=== PATIENT | male | born 1970 | race Caucasian/White ===

== ENCOUNTER 2016-07-11 12:02 | Emergency (ER) | payer OTHER ==
--- NOTE | 2016-07-11 14:01 | DIAGNOSTIC IMAGING REPORT ---
PROCEDURE: XR CHEST 2 VIEW INDICATION: SHORTNESS OF BREATH, initial encounter TECHNIQUE: PA and lateral view. COMPARISON: None. FINDINGS: Lungs are clear. Cardiovascular structures are normal. Bony thorax is unremarkable. IMPRESSION: 1. Negative chest.
--- NOTE | 2016-07-11 14:16 | ED ORDER SUMMARY ---
..... Patient: MERA RODRIGUEZ OrderSheet [facility] VisitID: [id number] [place] [address] 46y, M Registration Date/Time: 07/11/2016 ORDER SHEET Weight: 68.0 kg (estimated) Allergies: Penicillins, Codeine, morphine, Bee stings, Coconut GENERAL ORDERS: RT Evaluation (Pt may need a Albuterol Tx.) Stat (12:28 07/11/2016 Elberte R.N. per protocol) (Ack 12:31 Sidney) (12:44 EHassan R.N.) Chest 2V Urgent (12:42 07/11/2016 HBivens A.R.N.P.) (Ack 12:52 EHassan R.N.) (12:55 Deep) MEDICATION ORDERS: Solu-MEDROL IM 125 mg (NOW) (12:44 07/11/2016 HBivens A.R.N.P.) (13:02 EHassan R.N.) IV FLUIDS: ORDER SHEET NOTES: [Electronically signed by Farhana Gann R.N. (14:53 07/11/2016)] [Electronically signed by Sandrine McdonaldR.N.P. (16:16 07/11/2016)] [Electronically locked/signed by Farhana Gann R.N. (14:53 07/11/2016)]
--- NOTE | 2016-07-11 14:16 | ED NURSING NOTES ---
Clinical Report - Nurses [facility] [address] [place] [address] 07/11/2016 12:04 Patient: MERA RODRIGUEZ TRIAGE Triage time 12:Jul 11 2016. Chief Complaint: DIFFICULTY BREATHING. Alert. No acute distress. (anxious). --12:19 Erika Mullen R.N. 12:11 07/11/16. BP: 100/73. HR: 110. RR: 22. O2 saturation: 99%. Temp: 98.1 F. Pain level now 0/10. --12:19 Erika Mullen R.N. Acuity: LEVEL 3. --12:19 Erika Mullen R.N. Weight: 68 kg estimated. Height/Length: 68 inches Estimated. BMI: 22.8. --14:51 Farhana Gann R.N. Medications Albuterol Sulfate Inhalation. --12:14 Erika Mullen R.N. PredniSONE Oral 20 mg. --12:15 Erika Mullen R.N. Azithromycin Oral 250 mg (Aleyda). --12:16 Erika Mullen R.N. ProAir HFA Inhalation. --12:16 Erika Mullen R.N. Medication/allergy information source: the patient. --12:19 Erika Mullen R.N. Allergies Penicillins. --12:13 Erika Mullen R.N. Codeine. --12:13 Erika Mullen R.N. morphine. --12:13 Erika Mullen R.N. Bee stings. --12:13 Erika Mullen R.N. Coconut. --12:13 Erika Mullen R.N. History Arrived by private vehicle. Primary physician (Urgent Care). ( Ran out of Inhalers two weeks ago. Went to [facility] on 07/07 for same c/o. Was put on ABX and Prednisone and Inhaler. Pt didn't feill any RX because no money.). Treatment FOOD AND NUTRITION TEACHER: None. PAST MEDICAL HX: Has not received seasonal influenza immunization. SOCIAL HX: Smoker- current status unknown. No alcohol use or drug use. No infectious disease exposure. FALL RISK ASSESSMENT: Fall risk assessment completed. No fall risk identified. NUTRITIONAL RISK ASSESSMENT: The nutritional risk assessment revealed no deficiencies. FUNCTIONAL ASSESSMENT: Functional assessment: no impairments noted. LEARNING NEEDS ASSESSMENT: The learning needs assessment revealed no barriers. SKIN INTEGRITY ASSESSMENT: Skin integrity risk assessment completed. No skin integrity risk identified. --12:19 Erika Mullen R.N. PROBLEMS: Asthma. --12:16 Erika Mullen R.N. ADDITIONAL SURGERIES: Appendectomy. Carpal Tunnel Surgery. --12:19 Erika Mullen R.N. Interventions ID band on patient. To room. --12:19 Erika Mullen R.N. PHYSICAL ASSESSMENT Ambulatory to room. GENERAL / NEURO / PSYCH: Alert. Oriented X 4. Appears in no acute distress. HEENT: Mucous membranes are pink. RESPIRATORY: Mild respiratory distress. The patient can speak in full sentences. Nonproductive cough. Chest nontender. Decreased breath sounds in the bases bilaterally; decreased breath sounds in the right lung base posteriorly. Expiratory wheezes in the left upper lung posteriorly. No stridor, nasal flaring or crackles. CVS: Capillary refill less than 2 seconds. SKIN: Skin is warm and dry. Normal skin turgor. --12:49 Afua Ibarra R.N. NURSING PROGRESS NOTES ( Respiratory Therapy in Room for evaluation.). --12:33 Beth Voss 12:30 07/11/16. HR: 100. RR: 18. O2 saturation: 96% on room air. --12:52 Afua Ibarra R.N. The initial plan of care for this patient has been created This plan of care was discussed with the patient. Monitoring of patient in place. Patient gowned. Reassurance given. Reassessment after medication administered (post neb tx). He is calm. Overall patient status is improved- he states feels the same. RESPIRATORY: Respiratory distress present. Breath sounds abnormal. Decreased breath sounds in the right lung base posteriorly and upper lung posteriorly. Expiratory wheezes in the left upper lung posteriorly. No crackles. CVS: Denies chest pain. SKIN: Skin is warm and dry. Skin color within normal limits. Skin color normal. No diaphoresis noted. Two patient identifiers checked. Call light placed in reach. Side rails up x 1. Bed placed in lowest position. Brakes of bed on. Brakes of chair on. --12:52 Afua Ibarra R.N. 13:02 07/11/2016 Solu-Medrol (MethylPREDNISolone Sodium Succ) IM 125 mg given. Given in the right deltoid. Allergies verified and confirmed 5 rights. --13:02 Afua Ibarra R.N. 13:34 07/11/2016 Solu-Medrol IM Response: no adverse reaction. --13:34 Afua Ibarra R.N. Reassessment after medication administered. He is calm and resting quietly. Overall patient status is improved- he states feels better. --13:35 Afua Ibarra R.N. 13:00 07/11/16. HR: 89. O2 saturation: 100% on room air. --13:35 Afua Ibarra R.N. DISPOSITION / DISCHARGE Departure time: 14:45 Jul 11 2016. Condition at departure: improved and stable. No learning barriers present. Patient verbalized understanding. Written instructions provided in Mosotho. The patient was discharged by the nurse practitioner. He was discharged home. He left the Emergency Department ambulatory and via private vehicle. --14:51 Farhana Gann R.N. 14:50 07/11/16. BP: 104/79. HR: 88. RR: 16. O2 saturation: 99% on room air. Temp: 98.5 F (oral). Pain level now: 0/10. --14:51 Farhana Gann R.N. Locked/Released at 07/11/2016 14:53 by Farhana Gann R.N.
--- NOTE | 2016-07-11 14:16 | ED CLINICAL REPORT ---
Clinical Report - Physicians/Mid Levels [facility] [address] [place] [address] 07/11/2016 12:04 Patient: MERA RODRIGUEZ Time Seen: 12:36; initial patient contact, initial documentation, patient care assumed. Arrived- By private vehicle. Historian- patient. HISTORY OF PRESENT ILLNESS Chief Complaint: DYSPNEA, WHEEZING and HISTORY OF ASTHMA. This started about 1 weeks ago and is still present. The dyspnea is described as moderate. The patient has had a cough. No sputum production, orthopnea or chest pain. See nurses notes for current asthma threapy. Asthma triggers: unknown. Takes asthma medications (inhaled albuterol, albuterol by nebulizer) (ran out of asthma meds x2 wks ago, says he has the rx at [facility] but can't afford it, admitted to having medicare, but states he can't afford the copay til the Jul 31 till his next payout). Similar symptoms previously: Chronically, as bad. Recent medical care: The patient was seen recently in a clinic. ( went to clinic on 07/07, given rx for inhaler, abx, and prednisone, didn't get rx filled, dx with asthma and copd). REVIEW OF SYSTEMS No sore throat, nasal discharge, sinus drainage or fever. He has had chills. All systems otherwise negative, except as recorded above. PAST HISTORY See nurses notes. PROBLEMS: Asthma. --12:16 Erika Mullen R.N. ADDITIONAL SURGERIES: Appendectomy. Carpal Tunnel Surgery. --12:19 Erika Mullen R.N. SOCIAL HISTORY No alcohol use or drug use. No recent travel. Is a local resident. He is homeless. FAMILY HISTORY Negative. ADDITIONAL NOTES The nursing notes have been reviewed with agreement regarding the chief complaint, HPI, ROS, PMH and patient medications and allergies. PHYSICAL EXAM Vital Signs: 07/11/2016 12:11 BP: 100/73. HR: 110. RR: 22. O2 saturation: 99%. Temp: 98.1 F. Have been reviewed as abnormal and appear to be correct. Blood pressure normal. Tachycardic. Respiratory rate normal. Temperature normal. Oxygen saturation normal. Appearance: Alert. No acute distress. Eyes: Pupils equal, round and reactive to light. Eyes normal inspection. Neck: Normal inspection. Neck supple. CVS: Normal heart rate and rhythm. Heart sounds normal. Pulses normal. Respiratory: No respiratory distress. Breath sounds normal. Abdomen: Soft and nontender. No organomegaly. Back: Normal inspection. Skin: Skin warm and dry. Normal skin color. No rash. Normal skin turgor. Extremities: Extremities exhibit normal ROM. No lower extremity edema. Neuro: Oriented X 3. No motor deficit. No sensory deficit. LABS, X-RAYS, AND EKG Chest X-ray: Normal Chest X-Ray. Note - Tests: (xrays reviewed by dr bolton). PROGRESS AND PROCEDURES Course of Care: RT at bedside doing tx upon arrival 1405. B breath sounds CTA, resp even and unlabored, po100%ra. Patient counseled in person regarding the patient's stable condition, test results and diagnosis. 1405. Differential Diagnosis: Other possible considerations: noncompliance, asthma, uri, pneumonia, bronchitis, copd, emphysema. Above considerations are based on history, physical exam and X-Ray data. Differential diagnosis was discussed with patient. Disposition: Discharged home in good and improved condition (14:16). Condition: good and stable. CLINICAL IMPRESSION Mild persistent asthma with an acute exacerbation. No status asthmaticus, pneumonia, hypoxemia or acute respiratory failure. INSTRUCTIONS Avoid tobacco smoke. Do not smoke. (need to get prescriptions filled, especially the inhaler). Warnings: GENERAL WARNINGS: Return or contact your physician immediately if your condition worsens or changes unexpectedly, if not improving as expected, or if other problems arise. Specifically return if problem worsens. Follow-up: Follow up with your doctor in about three days even if well. Call for an appointment. Summary of care provided to patient. Understanding of the discharge instructions verbalized by patient. (Electronically signed by Sandrine Mcdonald A.R.N.P. 07/11/2016 16:16)
--- NOTE | 2016-07-11 14:16 | ED NURSING NOTES ---
Clinical Report - Nurses [facility] [address] [place] [address] 07/11/2016 12:04 Patient: MERA RODRIGUEZ TRIAGE Triage time 12:Jul 11 2016. Chief Complaint: DIFFICULTY BREATHING. Alert. No acute distress. (anxious). --12:19 Erika Mullen R.N. 12:11 07/11/16. BP: 100/73. HR: 110. RR: 22. O2 saturation: 99%. Temp: 98.1 F. Pain level now 0/10. --12:19 Erika Mullen R.N. Acuity: LEVEL 3. --12:19 Erika Mullen R.N. Weight: 68 kg estimated. Height/Length: 68 inches Estimated. BMI: 22.8. --14:51 Farhana Gann R.N. Medications Albuterol Sulfate Inhalation. --12:14 Erika Mullen R.N. PredniSONE Oral 20 mg. --12:15 Erika Mullen R.N. Azithromycin Oral 250 mg (Aleyda). --12:16 Erika Mullen R.N. ProAir HFA Inhalation. --12:16 Erika Mullen R.N. Medication/allergy information source: the patient. --12:19 Erika Mullen R.N. Allergies Penicillins. --12:13 Erika Mullen R.N. Codeine. --12:13 Erika Mullen R.N. morphine. --12:13 Erika Mullen R.N. Bee stings. --12:13 Erika Mullen R.N. Coconut. --12:13 Erika Mullen R.N. History Arrived by private vehicle. Primary physician (Urgent Care). ( Ran out of Inhalers two weeks ago. Went to [facility] on 07/07 for same c/o. Was put on ABX and Prednisone and Inhaler. Pt didn't feill any RX because no money.). Treatment PACKAGER AND STRAPPER: None. PAST MEDICAL HX: Has not received seasonal influenza immunization. SOCIAL HX: Smoker- current status unknown. No alcohol use or drug use. No infectious disease exposure. FALL RISK ASSESSMENT: Fall risk assessment completed. No fall risk identified. NUTRITIONAL RISK ASSESSMENT: The nutritional risk assessment revealed no deficiencies. FUNCTIONAL ASSESSMENT: Functional assessment: no impairments noted. LEARNING NEEDS ASSESSMENT: The learning needs assessment revealed no barriers. SKIN INTEGRITY ASSESSMENT: Skin integrity risk assessment completed. No skin integrity risk identified. --12:19 Erika Mullen R.N. PROBLEMS: Asthma. --12:16 Erika Mullen R.N. ADDITIONAL SURGERIES: Appendectomy. Carpal Tunnel Surgery. --12:19 Erika Mullen R.N. Interventions ID band on patient. To room. --12:19 Erika Mullen R.N. PHYSICAL ASSESSMENT Ambulatory to room. GENERAL / NEURO / PSYCH: Alert. Oriented X 4. Appears in no acute distress. HEENT: Mucous membranes are pink. RESPIRATORY: Mild respiratory distress. The patient can speak in full sentences. Nonproductive cough. Chest nontender. Decreased breath sounds in the bases bilaterally; decreased breath sounds in the right lung base posteriorly. Expiratory wheezes in the left upper lung posteriorly. No stridor, nasal flaring or crackles. CVS: Capillary refill less than 2 seconds. SKIN: Skin is warm and dry. Normal skin turgor. --12:49 Afua Ibarra R.N. NURSING PROGRESS NOTES ( Respiratory Therapy in Room for evaluation.). --12:33 Beth Voss 12:30 07/11/16. HR: 100. RR: 18. O2 saturation: 96% on room air. --12:52 Afua Ibarra R.N. The initial plan of care for this patient has been created This plan of care was discussed with the patient. Monitoring of patient in place. Patient gowned. Reassurance given. Reassessment after medication administered (post neb tx). He is calm. Overall patient status is improved- he states feels the same. RESPIRATORY: Respiratory distress present. Breath sounds abnormal. Decreased breath sounds in the right lung base posteriorly and upper lung posteriorly. Expiratory wheezes in the left upper lung posteriorly. No crackles. CVS: Denies chest pain. SKIN: Skin is warm and dry. Skin color within normal limits. Skin color normal. No diaphoresis noted. Two patient identifiers checked. Call light placed in reach. Side rails up x 1. Bed placed in lowest position. Brakes of bed on. Brakes of chair on. --12:52 Afua Ibarra R.N. 13:02 07/11/2016 Solu-Medrol (MethylPREDNISolone Sodium Succ) IM 125 mg given. Given in the right deltoid. Allergies verified and confirmed 5 rights. --13:02 Afua Ibarra R.N. 13:34 07/11/2016 Solu-Medrol IM Response: no adverse reaction. --13:34 Afua Ibarra R.N. Reassessment after medication administered. He is calm and resting quietly. Overall patient status is improved- he states feels better. --13:35 Afua Ibarra R.N. 13:00 07/11/16. HR: 89. O2 saturation: 100% on room air. --13:35 Afua Ibarra R.N. DISPOSITION / DISCHARGE Departure time: 14:45 Jul 11 2016. Condition at departure: improved and stable. No learning barriers present. Patient verbalized understanding. Written instructions provided in Slovak. The patient was discharged by the nurse practitioner. He was discharged home. He left the Emergency Department ambulatory and via private vehicle. --14:51 Farhana Gann R.N. 14:50 07/11/16. BP: 104/79. HR: 88. RR: 16. O2 saturation: 99% on room air. Temp: 98.5 F (oral). Pain level now: 0/10. --14:51 Farhana Gann R.N. Locked/Released at 07/11/2016 14:53 by Farhana Gann R.N.
--- NOTE | 2016-07-11 14:16 | ED ORDER SUMMARY ---
..... Patient: MERA RODRIGUEZ OrderSheet [facility] VisitID: [id number] [place] [address] 46y, M Registration Date/Time: 07/11/2016 ORDER SHEET Weight: 68.0 kg (estimated) Allergies: Penicillins, Codeine, morphine, Bee stings, Coconut GENERAL ORDERS: RT Evaluation (Pt may need a Albuterol Tx.) Stat (12:28 07/11/2016 Elberte R.N. per protocol) (Ack 12:31 Sidney) (12:44 EHassan R.N.) Chest 2V Urgent (12:42 07/11/2016 HBivens A.R.N.P.) (Ack 12:52 EHassan R.N.) (12:55 Deep) MEDICATION ORDERS: Solu-MEDROL IM 125 mg (NOW) (12:44 07/11/2016 HBivens A.R.N.P.) (13:02 EHassan R.N.) IV FLUIDS: ORDER SHEET NOTES: [Electronically signed by Farhana Gann R.N. (14:53 07/11/2016)] [Electronically signed by Sandrine McdonaldR.N.P. (16:16 07/11/2016)] [Electronically locked/signed by Farhana Gann R.N. (14:53 07/11/2016)]
--- NOTE | 2016-07-11 14:16 | ED CLINICAL REPORT ---
Clinical Report - Physicians/Mid Levels [facility] [address] [place] [address] 07/11/2016 12:04 Patient: MERA RODRIGUEZ Time Seen: 12:36; initial patient contact, initial documentation, patient care assumed. Arrived- By private vehicle. Historian- patient. HISTORY OF PRESENT ILLNESS Chief Complaint: DYSPNEA, WHEEZING and HISTORY OF ASTHMA. This started about 1 weeks ago and is still present. The dyspnea is described as moderate. The patient has had a cough. No sputum production, orthopnea or chest pain. See nurses notes for current asthma threapy. Asthma triggers: unknown. Takes asthma medications (inhaled albuterol, albuterol by nebulizer) (ran out of asthma meds x2 wks ago, says he has the rx at [facility] but can't afford it, admitted to having medicare, but states he can't afford the copay til the Jul 31 till his next payout). Similar symptoms previously: Chronically, as bad. Recent medical care: The patient was seen recently in a clinic. ( went to clinic on 07/07, given rx for inhaler, abx, and prednisone, didn't get rx filled, dx with asthma and copd). REVIEW OF SYSTEMS No sore throat, nasal discharge, sinus drainage or fever. He has had chills. All systems otherwise negative, except as recorded above. PAST HISTORY See nurses notes. PROBLEMS: Asthma. --12:16 Erika Mullen R.N. ADDITIONAL SURGERIES: Appendectomy. Carpal Tunnel Surgery. --12:19 Erika Mullen R.N. SOCIAL HISTORY No alcohol use or drug use. No recent travel. Is a local resident. He is homeless. FAMILY HISTORY Negative. ADDITIONAL NOTES The nursing notes have been reviewed with agreement regarding the chief complaint, HPI, ROS, PMH and patient medications and allergies. PHYSICAL EXAM Vital Signs: 07/11/2016 12:11 BP: 100/73. HR: 110. RR: 22. O2 saturation: 99%. Temp: 98.1 F. Have been reviewed as abnormal and appear to be correct. Blood pressure normal. Tachycardic. Respiratory rate normal. Temperature normal. Oxygen saturation normal. Appearance: Alert. No acute distress. Eyes: Pupils equal, round and reactive to light. Eyes normal inspection. Neck: Normal inspection. Neck supple. CVS: Normal heart rate and rhythm. Heart sounds normal. Pulses normal. Respiratory: No respiratory distress. Breath sounds normal. Abdomen: Soft and nontender. No organomegaly. Back: Normal inspection. Skin: Skin warm and dry. Normal skin color. No rash. Normal skin turgor. Extremities: Extremities exhibit normal ROM. No lower extremity edema. Neuro: Oriented X 3. No motor deficit. No sensory deficit. LABS, X-RAYS, AND EKG Chest X-ray: Normal Chest X-Ray. Note - Tests: (xrays reviewed by dr bolton). PROGRESS AND PROCEDURES Course of Care: RT at bedside doing tx upon arrival 1405. B breath sounds CTA, resp even and unlabored, po100%ra. Patient counseled in person regarding the patient's stable condition, test results and diagnosis. 1405. Differential Diagnosis: Other possible considerations: noncompliance, asthma, uri, pneumonia, bronchitis, copd, emphysema. Above considerations are based on history, physical exam and X-Ray data. Differential diagnosis was discussed with patient. Disposition: Discharged home in good and improved condition (14:16). Condition: good and stable. CLINICAL IMPRESSION Mild persistent asthma with an acute exacerbation. No status asthmaticus, pneumonia, hypoxemia or acute respiratory failure. INSTRUCTIONS Avoid tobacco smoke. Do not smoke. (need to get prescriptions filled, especially the inhaler). Warnings: GENERAL WARNINGS: Return or contact your physician immediately if your condition worsens or changes unexpectedly, if not improving as expected, or if other problems arise. Specifically return if problem worsens. Follow-up: Follow up with your doctor in about three days even if well. Call for an appointment. Summary of care provided to patient. Understanding of the discharge instructions verbalized by patient. (Electronically signed by Sandrine Mcdonald A.R.N.P. 07/11/2016 16:16)
--- NOTE | 2016-07-11 16:16 | ED MAR SUMMARY ---
..... Medication Administration Record [facility] [address] [place] [address] Patient: MERA RODRIGUEZ Visit ID: [id number] 46y, M Weight: 68.0 kg Height/Length: 68 in BMI: 22.8 ALLERGIES: Coconut, Bee stings, morphine, Codeine, Penicillins Given 13:02 07/11/2016 Afua Ibarra, RReginaldNReginald Medication Administered: SOLU-MEDROL [IM] (METHYLPREDNISOLONE SODIUM SUCC), Dose: 125 mg IM. Medication Ordered: Solu-MEDROL IM 125 mg (NOW).
--- NOTE | 2016-07-11 16:16 | ED MAR SUMMARY ---
..... Medication Administration Record [facility] [address] [place] [address] Patient: MERA RODRIGUEZ Visit ID: [id number] 46y, M Weight: 68.0 kg Height/Length: 68 in BMI: 22.8 ALLERGIES: Coconut, Bee stings, morphine, Codeine, Penicillins Given 13:02 07/11/2016 Afua Ibarra, RReginaldNReginald Medication Administered: SOLU-MEDROL [IM] (METHYLPREDNISOLONE SODIUM SUCC), Dose: 125 mg IM. Medication Ordered: Solu-MEDROL IM 125 mg (NOW).
--- NOTE | 2016-07-11 16:16 | ED MED RECONCILIATION SUMMARY ---
Patient: MERA RODRIGUEZ Medication Reconciliation Report [facility] VisitID: [id number] [address] [place] [address] 46y, M Registration Date/Time: 07/11/2016 Weight: 68.0 kg Height/Length: 68 in. BMI: 22.8 ALLERGIES: Bee stings, Coconut, Codeine, morphine, Penicillins The patient's Home Medications are listed below: THE FOLLOWING MEDICATIONS NEED TO BE RECONCILED: Albuterol Sulfate Inhalation Azithromycin Oral 250 mg, [employer]Pack PredniSONE Oral 20 mg ProAir HFA Inhalation The source(s) of the original Home Medication information: patient The following Medications were given to the patient in the Emergency Department: Solu-Medrol [IM] IM 125 mg, administered: 07/11/2016 1:02:00 PM The following Medications were prescribed to the patient: None.
--- NOTE | 2016-07-11 16:16 | ED DISCHARGE INSTRUCTIONS ---
Patient: MERA RODRIGUEZ General Instructions [facility] VisitID: [id number] [place] [address] 46y, M Registration Date/Time: 07/11/2016 Mild persistent asthma with an acute exacerbation. No status asthmaticus, pneumonia, hypoxemia or acute respiratory failure. INSTRUCTIONS Avoid tobacco smoke. Do not smoke. (need to get prescriptions filled, especially the inhaler). Warnings: GENERAL WARNINGS: Return or contact your physician immediately if your condition worsens or changes unexpectedly, if not improving as expected, or if other problems arise. Specifically return if problem worsens. Follow-up: Follow up with your doctor in about three days even if well. Call for an appointment. Summary of care provided to patient. Understanding of the discharge instructions verbalized by patient. ADDITIONAL INFORMATION Asthma [Adult] Asthma is a disease where the small air passages within the lung go into spasm and restrict the flow of air. Inflammation and swelling of the airways cause further restriction. During an acute asthma attack, these factors cause difficulty breathing, wheezing, cough and chest tightness. An asthma attack can be triggered by many things. Common triggers include the common cold, bronchitis, pneumonia, irritants such as smoke or pullutants in the air, emotional upset and heavy exercise. Inmany adults with asthma, allergies todust, mold, pollen and animal dander can cause an asthma attack. Skipping doses of daily asthma medicine can also bring on an asthma attack. Asthma can be controlled with proper medicines and decreased exposure to known allergens. Home Care: Take prescribed medicine exactly at the times advised. If you have a hand-held inhaler or aerosol breathing medicine, do not use it more than once every four hours, unless told to do so. (If you need this medicine more than every four hours, you may need to return to the Emergency Room.) If prescribed an antibiotic or prednisone, take all of the medicine even if you are feeling better after a few days. Do not smoke. Avoid being exposed to the smoke of others. Some persons with asthma have worsening of their symptoms when they take aspirin and non-steroidal medicines like ibuprofen (Motrin, Advil) and naproxen (Aleve, Naprosyn). Talk to your doctor if you think this may apply to you. Acetaminophen (Tylenol)should be safe to use. Follow Up with your doctor, or as advised by our staff. Always bring all of your current medicines with you for your doctor to see. If you do not already have one, talk to your doctor about developing a personalized "Asthma Action Plan." [NOTE: A pneumococcal vaccine and yearly flu shot (every fall) are recommended. Ask your doctor about this.] Get Prompt Medical Attention if any of the following occur: Increased wheezing or shortness of breath Need to use your inhalers more often than usual without relief Fever of 100.4F (38C) or higher, or as directed by your healthcare provider Coughing up lots of dark-colored or bloody sputum (mucus) Chest pain with each breath You do not start to improve within 24 hours Call 911 If Any Of The Following Occur : Trouble walking or talking because of shortness of breath If you use a peak flow meter andyou are still in the red zone (less than 50 percent) 15 minutes after using inhaler medication Lips or fingernails turning martin or blue You have been given the following additional information: Asthma, Acute (Adult) (Electronically signed by Sandrine Mcdonald A.R.N.P. 07/11/2016 16:16)
--- NOTE | 2016-07-11 16:16 | ED MED RECONCILIATION SUMMARY ---
Patient: MERA RODRIGUEZ Medication Reconciliation Report [facility] VisitID: [id number] [address] [place] [address] 46y, M Registration Date/Time: 07/11/2016 Weight: 68.0 kg Height/Length: 68 in. BMI: 22.8 ALLERGIES: Bee stings, Coconut, Codeine, morphine, Penicillins The patient's Home Medications are listed below: THE FOLLOWING MEDICATIONS NEED TO BE RECONCILED: Albuterol Sulfate Inhalation Azithromycin Oral 250 mg, ZPack PredniSONE Oral 20 mg ProAir HFA Inhalation The source(s) of the original Home Medication information: patient The following Medications were given to the patient in the Emergency Department: Solu-Medrol [IM] IM 125 mg, administered: 07/11/2016 1:02:00 PM The following Medications were prescribed to the patient: None.
== END 2016-07-11 14:45 | disposition home or self-care (01) ==
LOC: ED SRH 12:02
DX: J45.31 Mild persistent asthma with (acute) exacerbation (principal); Z59.0 Homelessness; Z88.0 Allergy status to penicillin; Z88.5 Allergy status to narcotic agent

== ENCOUNTER 2016-09-13 04:21 | Inpatient (IN) | payer OTHER ==
[2016-09-13] VITALS (12 sets, daily range): BP systolic 102–132; BP diastolic 58–86
[~2016-09-13] VITALS: Ht 172.7 cm; Wt 55.1 kg
--- NOTE | 2016-09-13 05:32 | DIAGNOSTIC IMAGING REPORT ---
PROCEDURE: XR ABDOMEN 1 VIEW UPRIGHT INDICATION: ABDOMINAL PAIN TECHNIQUE: AP upright view. COMPARISON: None. FINDINGS: There are moderately dilated small bowel loops in the right abdomen with air-fluid levels. There is a moderate to large air fluid collection in the left central abdomen. There is no evidence of free air. Mild levoscoliosis may be positional. IMPRESSION: 1. Moderately dilated small bowel loops with air-fluid levels with a rmdxqbef-vv-fvlvr air fluid collection in the left central abdomen. Consider ileus or obstruction. 2. Findings discussed with Dr. Abdul.
--- NOTE | 2016-09-13 05:32 | DIAGNOSTIC IMAGING REPORT ---
PROCEDURE: XR ABDOMEN 1 VIEW UPRIGHT INDICATION: ABDOMINAL PAIN TECHNIQUE: AP upright view. COMPARISON: None. FINDINGS: There are moderately dilated small bowel loops in the right abdomen with air-fluid levels. There is a moderate to large air fluid collection in the left central abdomen. There is no evidence of free air. Mild levoscoliosis may be positional. IMPRESSION: 1. Moderately dilated small bowel loops with air-fluid levels with a xsabcizr-lq-aqtwl air fluid collection in the left central abdomen. Consider ileus or obstruction. 2. Findings discussed with Dr. Abdul.
--- NOTE | 2016-09-13 06:49 | DIAGNOSTIC IMAGING REPORT ---
PROCEDURE: CT ABD/PELVIS WITH CONTRAST INDICATION: Pain. Nausea. Diarrhea. History of appendectomy. TECHNIQUE: 125 ml of Isovue 300 were injected intravenously and axial images were obtained of the entire abdomen and pelvis with sagittal and coronal reformations. COMPARISON: None. FINDINGS: ABDOMEN: There is marked gaseous and fluid distention of the stomach, with moderate fluid distention throughout the small bowel. There is moderate mucosal thickening of the distal esophagus Right colon is a decompressed, although there is a large amount of fluid in the sigmoid colon rectum. Gallbladder liver, spleen, pancreas, kidneys, and aorta are normal. PELVIS: Pelvic structures are normal. No evidence of free fluid. IMPRESSION: 1. Marked fluid distention of the stomach with moderate to large amount of fluid throughout the small bowel. While there is moderate fluid in the sigmoid colon and rectum, findings are most compatible with small bowel obstruction (versus gastroenteritis. 2. Moderate mucosal thickening of the distal esophagus suggests reflux esophagitis. All CT scans at this facility use dose modulation, iterative reconstruction, and/or weight-based dosing when appropriate to reduce radiation dose to as low as reasonably achievable.
--- NOTE | 2016-09-13 06:57 | ED CLINICAL REPORT ---
Clinical Report - Physicians/Mid Levels [facility] [address] [place] [address] 09/13/2016 4:27 Patient: MERA RODRIGUEZ Time Seen: 04:55 Sep 13 2016. Arrived- By private vehicle. Historian- patient. CPT: ER phys charges level 5 (#[id number]). HISTORY OF PRESENT ILLNESS Chief Complaint: ABDOMINAL PAIN and VOMITING, DIARRHEA and NAUSEA. At its maximum, severity described as moderate. When seen in the E.D., severity described as moderate. Modifying factors- worsened by food. Not relieved by anything. This started about 5 days [employer] BUS [employer] and is still present. It is described as "pain" and cramping and it is described as located in the periumbilical area. The patient has had nausea, loss of appetite, moderate vomiting. The vomiting has occurred several times and mild diarrhea. No recent travel. Similar symptoms previously: None. Recent medical care: The patient was seen recently at this facility in the emergency department (2 days ago). Seen for similar symptoms. Evaluation/treatment: sonogram and labs. Diagnosis: (Abdominal pain unclear etiology). REVIEW OF SYSTEMS No constipation, black stools or stools, hematemesis or difficulty with urination. No pain with urination, urinary frequency, fever or sore throat or throat. No chest pain, difficulty breathing, cough or joint pain. No skin rash or rash, chills, back pain or chills. No fever, bloody stools, diabetic symptoms or easy bruising. The patient has had fatigue and weakness. All systems otherwise negative, except as recorded above. PAST HISTORY Abdominal Pain. COPD - Chronic Obstructive Pulmonary Disease. Asthma. Appendectomy. Carpal Tunnel Surgery. SOCIAL HISTORY Heavy tobacco smoker (cigarette)- 1 pack per day. ADDITIONAL NOTES The nursing notes have been reviewed. PHYSICAL EXAM Vital Signs: 09/13/2016 04:28 BP: 115/87. HR: 57. RR: 22. Temp: 98.7 F. Pain level now: 6/10. Appearance: Alert. Patient in moderate distress. Eyes: Eyes normal inspection. ENT: Nose normal. Dry mucous membranes present. Pharynx normal. Neck: Normal inspection. Neck supple. CVS: Normal heart rate and rhythm. Heart sounds normal. Pulses normal. Respiratory: No respiratory distress. Breath sounds normal. Chest nontender. Abdomen: Soft. Moderate tenderness in the periumbilical area. No guarding. Abnormal bowel sounds: diminished. No mass. Distention with tympany to percussion. Back: Normal inspection. No CVA tenderness. Skin: Skin warm. Normal skin color. No rash. Extremities: Extremities exhibit normal ROM. No lower extremity edema. Neuro: Oriented X 3. No motor deficit. No sensory deficit. Reflexes normal. LABS, X-RAYS, AND EKG KUB: (Possible bowel obstruction). Views: erect AP. Technique: good. The X-rays were independently viewed by me and interpreted contemporaneously by me. Abdominal CT: Normal aorta. Normal kidneys. No free fluid. No diverticulitis. Bowel obstruction. Appendix removed. Abdominal CT performed with IV contrast. The study was independently viewed by me, interpreted by the radiologist and discussed with the radiologist. Laboratory Tests: CBC w Diff: (SANTY: 09/13/2016 04:30) ( MsgRcvd 09/13/2016 05:04) Final results Test Result Flag Units (Reference) WHITE BLOOD COUNT 7.1 K/uL (4.5-11.5) RED BLOOD COUNT 4.81 M/uL (4.50-5.90) HEMOGLOBIN 14.4 gm/dL (13.5-17.5) HEMATOCRIT 44.2 % (41.0-53.0) MEAN CELL VOLUME 92 fL (80-100) MEAN CORPUSCULAR HGB 30 pg (26-34) MEAN CORPUSCULAR HGB CONC 33 g/dL (31-37) RED CELL DISTRIBUTION WIDTH 13.4 % (11.6-14.8) PLATELET COUNT 310 K/uL (150-400) NEUTROPHIL % 73.6 % (50-75) LYMPH % 14.8 L % (25-40) MONO % 8.6 % (3-14) EOSINOPHIL % 2.2 % (0-4) BASOPHIL % 0.8 % (0-2) Lactate, Serum: (SANTY: 09/13/2016 08:50) ( DestinationRXcvd 09/13/2016 09:29) Final results Test Result Flag Units (Reference) LACTIC ACID 1.2 mmol/L (0.4-2.0) Lipase: (SANTY: 09/13/2016 04:30) ( MsgRcvd 09/13/2016 08:12) Final results Test Result Flag Units (Reference) LIPASE 147 U/L (73-393) CMP: (SANTY: 09/13/2016 04:30) ( MsgRcvd 09/13/2016 05:15) Final results Test Result Flag Units (Reference) GLUCOSE 97 mg/dL (70-110) BUN 27 H mg/dL (7-18) CREATININE 1.1 mg/dL (0.6-1.3) Estimated GFR >60 mL/min Estimated GFR- >60 mL/min Note: Persistent reduction over 3 months in eGFR<60 mL/min/1.73 m2 defines CKD. Patients with eGFR values>=60 mL/min/1.73 m2 may also have CKD if evidence ofpersistent proteinuria. Additional information may be foundat www.kidney.org. SODIUM 137 mmol/L (136-145) POTASSIUM 3.5 mmol/L (3.5-5.1) CHLORIDE 101 mmol/L (98-107) CARBON DIOXIDE 32 mmol/L (21-32) CALCIUM 8.8 mg/dL (8.5-10.1) TOTAL PROTEIN 8.0 g/dL (6.4-8.2) ALBUMIN 3.7 g/dL (3.3-5.0) BILIRUBIN, TOTAL 0.2 mg/dL (0.0-1.0) ALKALINE PHOSPHATASE 82 U/L (46-116) AST (SGOT) 27 U/L (15-37) ALT (SGPT) 28 U/L (12-78) . PROGRESS AND PROCEDURES Course of Care: IV NS Zofran 4 mg IV Phenergan 12.5 mg IV NG placed with 1000cc returned. Discussed case with on-call health care provider, (Roe). Reviewed test results. Agreed upon treatment plan and decision to admit. Health care provider will see patient in ED. Patient/family counseled. Old medical records ordered. Disposition orders written. Disposition: Admitted to Acute Care. CLINICAL IMPRESSION Complete small bowel obstruction associated with intestinal bands / adhesions. Dehydration with pre-renal azotemia. (Electronically signed by Bernardo Abdul MD 09/13/2016 23:05)
--- NOTE | 2016-09-13 06:57 | ED CLINICAL REPORT ---
Clinical Report - Physicians/Mid Levels [facility] [address] [place] [address] 09/13/2016 4:27 Patient: MERA RODRIGUEZ Time Seen: 04:55 Sep 13 2016. Arrived- By private vehicle. Historian- patient. CPT: ER phys charges level 5 (#[id number]). HISTORY OF PRESENT ILLNESS Chief Complaint: ABDOMINAL PAIN and VOMITING, DIARRHEA and NAUSEA. At its maximum, severity described as moderate. When seen in the E.D., severity described as moderate. Modifying factors- worsened by food. Not relieved by anything. 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 It is described as "pain" and cramping and it is described as located in the periumbilical area. The patient has had nausea, loss of appetite, moderate vomiting. The vomiting has occurred several times and mild diarrhea. No recent travel. Similar symptoms previously: None. Recent medical care: The patient was seen recently at this facility in the emergency department (2 days ago). Seen for similar symptoms. Evaluation/treatment: sonogram and labs. Diagnosis: (Abdominal pain unclear etiology). REVIEW OF SYSTEMS No constipation, black stools or stools, hematemesis or difficulty with urination. No pain with urination, urinary frequency, fever or sore throat or throat. No chest pain, difficulty breathing, cough or joint pain. No skin rash or rash, chills, back pain or chills. No fever, bloody stools, diabetic symptoms or easy bruising. The patient has had fatigue and weakness. All systems otherwise negative, except as recorded above. PAST HISTORY Abdominal Pain. COPD - Chronic Obstructive Pulmonary Disease. Asthma. Appendectomy. Carpal Tunnel Surgery. SOCIAL HISTORY Heavy tobacco smoker (cigarette)- 1 pack per day. ADDITIONAL NOTES The nursing notes have been reviewed. PHYSICAL EXAM Vital Signs: 09/13/2016 04:28 BP: 115/87. HR: 57. RR: 22. Temp: 98.7 F. Pain level now: 6/10. Appearance: Alert. Patient in moderate distress. Eyes: Eyes normal inspection. ENT: Nose normal. Dry mucous membranes present. Pharynx normal. Neck: Normal inspection. Neck supple. CVS: Normal heart rate and rhythm. Heart sounds normal. Pulses normal. Respiratory: No respiratory distress. Breath sounds normal. Chest nontender. Abdomen: Soft. Moderate tenderness in the periumbilical area. No guarding. Abnormal bowel sounds: diminished. No mass. Distention with tympany to percussion. Back: Normal inspection. No CVA tenderness. Skin: Skin warm. Normal skin color. No rash. Extremities: Extremities exhibit normal ROM. No lower extremity edema. Neuro: Oriented X 3. No motor deficit. No sensory deficit. Reflexes normal. LABS, X-RAYS, AND EKG KUB: (Possible bowel obstruction). Views: erect AP. Technique: good. The X-rays were independently viewed by me and interpreted contemporaneously by me. Abdominal CT: Normal aorta. Normal kidneys. No free fluid. No diverticulitis. Bowel obstruction. Appendix removed. Abdominal CT performed with IV contrast. The study was independently viewed by me, interpreted by the radiologist and discussed with the radiologist. Laboratory Tests: CBC w Diff: (SANTY: 09/13/2016 04:30) ( MsgRcvd 09/13/2016 05:04) Final results Test Result Flag Units (Reference) WHITE BLOOD COUNT 7.1 K/uL (4.5-11.5) RED BLOOD COUNT 4.81 M/uL (4.50-5.90) HEMOGLOBIN 14.4 gm/dL (13.5-17.5) HEMATOCRIT 44.2 % (41.0-53.0) MEAN CELL VOLUME 92 fL (80-100) MEAN CORPUSCULAR HGB 30 pg (26-34) MEAN CORPUSCULAR HGB CONC 33 g/dL (31-37) RED CELL DISTRIBUTION WIDTH 13.4 % (11.6-14.8) PLATELET COUNT 310 K/uL (150-400) NEUTROPHIL % 73.6 % (50-75) LYMPH % 14.8 L % (25-40) MONO % 8.6 % (3-14) EOSINOPHIL % 2.2 % (0-4) BASOPHIL % 0.8 % (0-2) Lactate, Serum: (SANTY: 09/13/2016 08:50) ( whoplusyoucvd 09/13/2016 09:29) Final results Test Result Flag Units (Reference) LACTIC ACID 1.2 mmol/L (0.4-2.0) Lipase: (SANTY: 09/13/2016 04:30) ( MsgRcvd 09/13/2016 08:12) Final results Test Result Flag Units (Reference) LIPASE 147 U/L (73-393) CMP: (SANTY: 09/13/2016 04:30) ( MsgRcvd 09/13/2016 05:15) Final results Test Result Flag Units (Reference) GLUCOSE 97 mg/dL (70-110) BUN 27 H mg/dL (7-18) CREATININE 1.1 mg/dL (0.6-1.3) Estimated GFR >60 mL/min Estimated GFR- >60 mL/min Note: Persistent reduction over 3 months in eGFR<60 mL/min/1.73 m2 defines CKD. Patients with eGFR values>=60 mL/min/1.73 m2 may also have CKD if evidence ofpersistent proteinuria. Additional information may be foundat www.kidney.org. SODIUM 137 mmol/L (136-145) POTASSIUM 3.5 mmol/L (3.5-5.1) CHLORIDE 101 mmol/L (98-107) CARBON DIOXIDE 32 mmol/L (21-32) CALCIUM 8.8 mg/dL (8.5-10.1) TOTAL PROTEIN 8.0 g/dL (6.4-8.2) ALBUMIN 3.7 g/dL (3.3-5.0) BILIRUBIN, TOTAL 0.2 mg/dL (0.0-1.0) ALKALINE PHOSPHATASE 82 U/L (46-116) AST (SGOT) 27 U/L (15-37) ALT (SGPT) 28 U/L (12-78) . PROGRESS AND PROCEDURES Course of Care: IV NS Zofran 4 mg IV Phenergan 12.5 mg IV NG placed with 1000cc returned. Discussed case with on-call health care provider, (Roe). Reviewed test results. Agreed upon treatment plan and decision to admit. Health care provider will see patient in ED. Patient/family counseled. Old medical records ordered. Disposition orders written. Disposition: Admitted to Acute Care. CLINICAL IMPRESSION Complete small bowel obstruction associated with intestinal bands / adhesions. Dehydration with pre-renal azotemia. (Electronically signed by Bernardo Abdul MD 09/13/2016 23:05)
--- NOTE | 2016-09-13 06:57 | ED NURSING NOTES ---
Clinical Report - Nurses [facility] [address] [place] [address] 09/13/2016 4:27 Patient: MERA RODRIGUEZ TRIAGE Triage time 04:28. Acuity: LEVEL 3. Chief Complaint: ABDOMINAL PAIN, NAUSEA, VOMITING and DIARRHEA. Alert. JEANNA COMA SCORE: [place] Coma Scale: 15- eyes open spontaneously (4); best verbal response- oriented x 4 (5); best motor response- obeys commands (6). --04:33 Mustapha Inman R.N. 04:28 09/13/16. BP: 115/87. HR: 57. RR: 22. O2 saturation: unable to obtain due to patient condition. Temp: 98.7 F. Pain level now: 12/05. --04:33 Mustapha Inman R.N. Weight: 58.9 kg stated. Height/Length: 68 inches Per Patient. BMI: 19.7. --04:27 Mustapha Inman R.N. Medications ProAir HFA Inhalation. --04:29 Mustapha Inman R.N. Allergies Codeine. morphine. Penicillin. --04:29 Mustapha Inman R.N. Bee stings. Coconut. --04:29 Mustapha Inman R.N. History Historian: patient. Unaccompanied. This started today. SOCIAL HX: Heavy tobacco smoker (cigarette)- less than 1 pack per day. No alcohol use or drug use. --04:33 Mustapha Inman R.N. PROBLEMS: Abdominal Pain. COPD - Chronic Obstructive Pulmonary Disease. Asthma. --04:31 Mustapha Inman R.N. ADDITIONAL SURGERIES: Appendectomy. Carpal Tunnel Surgery. --04:31 Mustapha Inman R.N. Interventions ID and allergy band on patient. To treatment room. --04:33 Mustapha Inman R.N. PHYSICAL ASSESSMENT ( pt states having vomiting and diarrhea "all day today". patient was seen at this facility yesterday.). GENERAL / NEURO / PSYCH: Alert. Oriented X 4. HEENT: Mucous membranes are pink. RESPIRATORY: Respirations not labored. CVS: ( hands are cold). Capillary refill less than 2 seconds. GI / : Abdomen soft. SKIN: Skin is dry. --04:35 Mustapha Inman R.N. To room via stretcher. --04:35 Mustapha Inman R.N. GI / : Abdominal tenderness diffusely. --04:36 Mustapha Inman R.N. 04:42 09/13/16. O2 saturation: 98% on room air. --04:42 Mustapha Inman R.N. ( patient states that he wants to wait, and not take the GI cocktail at this time.). --05:51 Mustapha Inman R.N. ( Skin wounds all over body all in different stages of healing.). --08:29 Alison Godfrey R.N. NURSING PROGRESS NOTES 04:37 09/13/2016 Site #1 started via IV in the left antecubital space with an 20g angiocath; one attempt. Blood drawn: rainbow set. Labeled in the presence of the patient and sent to the lab. Saline lock flushed with saline. --04:37 Mustapha Inman R.N. Pulse oximeter and NIBP monitor placed on patient. Patient gowned. Head of bed elevated. Reassurance given. Two patient identifiers checked. Call light placed in reach. Side rails up. Bed placed in lowest position. Brakes of bed on. Patient ready for evaluation- chart flagged. --04:37 Mustapha Inman R.N. Patient waiting for evaluation. --04:37 Mustapha Inman R.N. 04:47 09/13/2016 Started bag #1 1000 mL IV Fluids IV NS (Saline); at 1000 mL/hr over 1 hour(s) via site #1. Allergies verified and confirmed 5 rights. IV patency established. IV site checked: no pain, redness, or swelling. IV flushed thoroughly pre- and post-medication administration. --04:47 Mustapha Inman R.N. 05:23 09/13/2016 Zofran (Ondansetron HCl) IVP 4 mg given over 1 minute(s) via site #1. Allergies verified and confirmed 5 rights. IV patency established. IV site checked: no pain, redness, or swelling. IV flushed thoroughly pre- and post-medication administration. --05:23 Mustapha Inman R.N. ( Patient states that he is nauseous, and does not believe that he can drink the GI cocktail at this time.). --05:24 Mustapha Inman R.N. 06:01 09/13/2016 PHENERGAN (Promethazine HCl) IVP 12.5 mg given over 2 minute(s) via site #1. Allergies verified and confirmed 5 rights. IV patency established. IV site checked: no pain, redness, or swelling. IV flushed thoroughly pre- and post-medication administration. --06:01 Mustapha Inman R.N. ( patient in CT). --06:01 Mustapha Inman R.N. ( NG tube placed at bedside in ER. Patient tolerated procedure. PLaced on low intermittent suction, 1000ml of stomach contents returned currently.). --06:41 Mustapha Inman R.N. 07:00. ( Report given to Alison TENORIO at 0700). --07:21 Mustapha Inman R.N. 08:15 09/13/16. BP: 124/78. HR: 85. RR: 18. O2 saturation: 99% on room air. Temp: 98.6 F. 07:30 09/13/16. BP: 124/84. HR: 83. RR: 20. O2 saturation: 97% on room air. 07:00 09/13/16. BP: 117/83. HR: 83. RR: 20. O2 saturation: 96% on room air. --08:28 Alison Godfrey R.N. ( report given to Hattie TENORIO pt to be transferred.). --08:51 Alison Godfrey R.N. 05:48 09/13/2016 IV Fluids IV NS Discontinued: bag #1 infused. Total amount infused: 1000 mL. IV patency established. IV site checked: no pain, redness, or swelling. IV flushed thoroughly. --09:48 Alison Godfrey R.N. 06:49 09/13/2016 IV Saline Lock Drip IV Discontinued: bag #1 infused. Total amount infused: 1000 mL. IV patency established. IV site checked: no pain, redness, or swelling. IV flushed thoroughly. --09:49 Alison Godfrey R.N. DISPOSITION / DISCHARGE Departure time: 899Sep 13 2016. Admitted to Acute Care. --09:48 Alison Godfrey R.N. 08:15 09/13/16. BP: 124/78. HR: 85. RR: 18. O2 saturation: 99% on room air. Temp: 98.6 F. --09:48 Alison Godfrey R.N. Locked/Released at 09/13/2016 9:50 by Alison Godfrey R.N.
--- NOTE | 2016-09-13 06:57 | ED ORDER SUMMARY ---
..... Patient: MERA RODRIGUEZ OrderSheet [facility] VisitID: [id number] [place] [address] 46y, M Registration Date/Time: 09/13/2016 ORDER SHEET Weight: 58.9 kg (stated) Allergies: Codeine, morphine, Penicillin, Bee stings, Coconut GENERAL ORDERS: CMP Urgent (04:47 09/13/2016 DDavis R.N. verbal order read back to Amie LOPEZ) (4:47 DDavis R.N.) CBC w Diff Urgent (04:47 09/13/2016 DDavis R.N. verbal order read back to Amie LOPEZ) (4:47 DDavis R.N.) Abdomen 1V Upright Urgent (05:00 09/13/2016 Amie LOPEZ) (Ack 5:09 Bryanegekimana) (5:11 RFay) CT Abd/Pel w Cont (No) (N/A) Urgent (05:25 09/13/2016 Amei LOPEZ) (Ack 5:51 Srinivasa) (6:09 RFay) NG Tube (06:15 09/13/2016 DDnoahs R.N. verbal order read back to Amie LOPEZ) (6:15 DDavis R.N.) Lipase Urgent (07:16 09/13/2016 Amie LOPEZ) (Ack 7:20 Shelly) (9:50 LWhalen R.N.) Abdomen 1V Urgent (07:44 09/13/2016 Amie LOPEZ) (Ack 7:47 Cynthianer) (9:50 LWhalen R.N.) Lactate, Serum Urgent (08:41 09/13/2016 LWhalen R.N. verbal order read back to Amie LOPEZ) (Ack 8:44 Shelly) (9:50 LWhalen R.N.) v/o MEDICATION ORDERS: GI Cocktail WHITE PO 50 mL (when can) (05:01 09/13/2016 Amie LOPEZ) (Ack 5:41 DDavis R.N.) (Cancelled: Patient Refusal9:50 LWhalen R.NReginald) Phenergan IV 12.5 mg (NOW) (05:53 09/13/2016 Amie LOPEZ) (6:01 Nati Connor) IV FLUIDS: IV NS : initial bolus none -, then 1000 mL/hr (NOW) (04:46 09/13/2016 Nati Connor verbal order read back to Amie LOPEZ) (4:47 Nati Garcia.N.) IV Saline Lock (04:47 09/13/2016 Nati Connor verbal order read back to Amie LOPEZ) (4:48 Nati Garcia.N.) Zofran IV 4 mg (NOW) (05:00 09/13/2016 Amie LOPEZ) (5:23 Nati Garcia.NReginald) ORDER SHEET NOTES: [Electronically signed by Alison Godfrey R.N. (09:50 09/13/2016)] [Electronically signed by Bernardo Abdul MD (23:05 09/13/2016)] [Electronically locked/signed by Alison Godfrey R.N. (09:50 09/13/2016)]
--- NOTE | 2016-09-13 06:57 | ED ORDER SUMMARY ---
..... Patient: MERA RODRIGUEZ OrderSheet [facility] VisitID: [id number] [place] [address] 46y, M Registration Date/Time: 09/13/2016 ORDER SHEET Weight: 58.9 kg (stated) Allergies: Codeine, morphine, Penicillin, Bee stings, Coconut GENERAL ORDERS: CMP Urgent (04:47 09/13/2016 DDavis R.N. verbal order read back to Amie LOPEZ) (4:47 DDavis R.N.) CBC w Diff Urgent (04:47 09/13/2016 DDavis R.N. verbal order read back to Amie LOPEZ) (4:47 DDavis R.N.) Abdomen 1V Upright Urgent (05:00 09/13/2016 Amie LOPEZ) (Ack 5:09 Bryanegekimana) (5:11 RFay) CT Abd/Pel w Cont (No) (N/A) Urgent (05:25 09/13/2016 Amie LOPEZ) (Ack 5:51 Srinivasa) (6:09 RFay) NG Tube (06:15 09/13/2016 DDnoahs R.N. verbal order read back to Amie LOPEZ) (6:15 DDavis R.N.) Lipase Urgent (07:16 09/13/2016 Amie LOPEZ) (Ack 7:20 Shelly) (9:50 LWhalen R.N.) Abdomen 1V Urgent (07:44 09/13/2016 Amie LOPEZ) (Ack 7:47 Cynthianer) (9:50 LWhalen R.N.) Lactate, Serum Urgent (08:41 09/13/2016 LWhalen R.N. verbal order read back to Amie LOPEZ) (Ack 8:44 Shelly) (9:50 LWhalen R.N.) v/o MEDICATION ORDERS: GI Cocktail WHITE PO 50 mL (when can) (05:01 09/13/2016 Amie LOPEZ) (Ack 5:41 DDavis R.N.) (Cancelled: Patient Refusal9:50 LWhalen R.NReginald) Phenergan IV 12.5 mg (NOW) (05:53 09/13/2016 Amie LOPEZ) (6:01 Nati Connor) IV FLUIDS: IV NS : initial bolus none -, then 1000 mL/hr (NOW) (04:46 09/13/2016 Nati Connor verbal order read back to Amie LOPEZ) (4:47 Nati Garcia.N.) IV Saline Lock (04:47 09/13/2016 Nati Connor verbal order read back to Amie LOPEZ) (4:48 Nati Garcia.N.) Zofran IV 4 mg (NOW) (05:00 09/13/2016 Amie LOPEZ) (5:23 Nati Garcia.NReginald) ORDER SHEET NOTES: [Electronically signed by Alison Godfrey R.N. (09:50 09/13/2016)] [Electronically signed by Bernardo Abdul MD (23:05 09/13/2016)] [Electronically locked/signed by Alison Godfrey R.N. (09:50 09/13/2016)]
--- NOTE | 2016-09-13 09:13 | NUR ---
RECEIVED PT FROM ED, LETHARGIC BUT EASILY AROUSED. ORIENTED, COHERENT, COOPEARIVE. V/S TAKEN AND RECORDED. ASSESSMENT DONE. PT COMPLAINT OF RT NOSRTIL PAIN FROM WHERE TH NGTUBE IS. POOR PERSONAL HYGIENE NOTED. MORNING CARE DONE BY MS NELSON. NPO INSTRUC. FOR POSSIBLE EXPLOR LAP TODAY. CONSENT SECURED. NEEDS ATTENDED.
--- NOTE | 2016-09-13 09:28 | CONSULTATION REPORT ---
DATE OF CONSULTATION: 09/13/2016 CHIEF COMPLAINT: 1. Abdominal pain HISTORY OF PRESENT ILLNESS: A 46-year-old male admitted to [facility] via the emergency room where he presented with severe abdominal pain, nausea and vomiting. The patient states that the pain began approximately 4 or 5 days ago. He described it as periumbilical, mid abdomen, steady, nonradiating. He was seen in the emergency department yesterday, evaluated and discharged home, however, the pain worsened during the night and he returned to the emergency room today with nausea, vomiting, abdominal pain, and diarrhea. Last bowel movement was yesterday. The patient cannot remember the last time he passed any flatus. A CT of his abdomen was interpreted by Dr. Jo as distended stomach and small bowel with decompressed the cecum with fluid of the sigmoid and the rectum. Could not rule out small-bowel obstruction, ischemic bowel versus gastroenteritis. MEDICAL/SURGICAL HISTORY: Appendectomy many years ago, COPD. The patient does not have a physician. He gets albuterol from the urgent walk-in clinic. MEDICATIONS: 1. Albuterol inhaler. ALLERGIES: 1. MORPHINE. 2. CODEINE. 3. PENICILLIN. SOCIAL HISTORY: He is single. He has no children. He is homeless. He smokes less than a pack of cigarettes a day, does not drink alcohol, and does not use recreational drugs. He is on disability for Tourette syndrome. FAMILY HISTORY: Mother, age unknown. She is in good health. Father in his 50s from an [place]. One brother and one sister, alive and well. REVIEW OF SYSTEMS: No history of hepatitis, jaundice, rheumatic fever, blood transfusion, heart murmurs requiring antibiotics, or bleeding tendencies. The remaining 12- point review of systems is negative. PHYSICAL EXAMINATION: GENERAL: The patient appears to be in mild to moderate discomfort. He has NG tube in place. He is awake, alert, conversant. VITAL SIGNS: Blood pressure 115/87, pulse 57, respirations 22, temperature 98.7. HEENT: Normocephalic, atraumatic. Pupils equal and reactive. No scleral icterus. External auditory canals clear. No nasal septal defect or discharge. The patient has a nasogastric tube in place. Throat is clear. Dry mucous membranes. He is edentulous. NECK: Supple. No JVD, carotid bruit or adenopathy. LUNGS: Clear. No rales, rhonchi, or wheezing. O2 saturation is pending. HEART: Regular rhythm, no murmurs. ABDOMEN: Nondistended, tympanitic to percussion. Positive bowel sounds. Very tender to palpation. The patient appears to be in quite tender and uncomfortable on palpation. No masses appreciable. No hernias. EXTREMITIES: Full range of motion. No pretibial or ankle edema. NEUROLOGIC: The patient grossly intact. No focal motor neurological deficits. LYMPHATICS: No cervical, supraclavicular, axillary, or groin adenopathy. SKIN: Warm and dry with no peripheral cyanosis. LABS/IMAGING: White count 7.1, hemoglobin, hematocrit 14.4 and 44.2, respectively. Sodium 137, potassium 3.5, chloride 102, bicarbonate 32, glucose 97, BUN 27, creatinine 1.1. IMPRESSION: 1. Gastroenteritis versus partial small obstruction; however, because of the patient's peritoneal signs on physical examination, I would suggest a diagnostic laparoscopy. I would rather have a negative diagnostic laparoscopy than miss an internal hernia or early ischemic bowel. The procedure has been explained to the patient. He understands and agrees to proceed. All questions answered to his satisfaction. PLAN: We will schedule him urgently.
--- NOTE | 2016-09-13 10:36 | DIAGNOSTIC IMAGING REPORT ---
PROCEDURE: XR ABDOMEN 1 VIEW INDICATION: NG PLACEMENT TECHNIQUE: AP upright view (0810 hours). COMPARISON: Compared to abdominal radiograph earlier today (09/13/2016, 0510 hours). FINDINGS: Placement of NG tube which is somewhat high (proximal port of the gastroesophageal junction). Marked decrease in the gastric distention. Mild improvement in small bowel distention. No evidence of free air. IMPRESSION: 1. Placement of NG tube with marked decrease in gastric fluid/distention. However, to remain somewhat high (can be advanced 5-10 cm). 2. Findings called to the floor (RN), and to Dr. Silva.
--- NOTE | 2016-09-13 11:00 | NUR ---
TRIED TO ADVANCE NG TUBE TO 10CM MORE PER DR JC'S INSTRUCS., BUT PT REFUSED AT THIS TIME. PT IS GOING TO SURGERY TODAY.
--- NOTE | 2016-09-13 12:40 | NUR ---
PT WENT TO SURGERY VIA GORNEY. AMBULATE APPROX 15 FEET TO THE GORNEY FROM THE BATHROOM. REPORT GIVEN TO MR TELLO AND INFORMED HIM THAT NG TUNE NEEDS TO BE ADVANCE TO 10CM MORE. " WE'LL TAKE CARE OF IT" MR TELLO STATES.
[2016-09-13] MEDS ORDERED: PROAIR HFA IN (14:11)
--- NOTE | 2016-09-13 14:14 | NUR ---
PT RECEIVED TO PACU SEDATED, NOT YET RESPONDING TO VOICE. VSS. WARM BLANKET TO ABDOMEN AND WARM BLANKETS FOR COMFORT.
--- NOTE | 2016-09-13 14:37 | OPERATIVE REPORT ---
DATE OF SURGERY: 09/13/2016 SURGEON: Lian Silva III, MD ELECTRIC SEALING MACHINE OPERATOR: None. PREOPERATIVE DIAGNOSIS: 1. Partial versus complete small-bowel obstruction POSTOPERATIVE DIAGNOSIS: 1. Partial versus complete small-bowel obstruction PROCEDURES PERFORMED: 1. Diagnostic laparoscopy 2. Lysis of right lower quadrant abdominal wall and inner loop adhesions ANESTHESIA: General endotracheal. INDICATIONS: The patient is a 46-year-old male with approximately a 5-day history of progressive, severe abdominal pain. He was admitted to [facility] after a second visit to the emergency department in which he complained of severe abdominal pain and vomiting. CT of his abdomen showed distended small loops of bowel with decompressed cecum, consistent with gastroenteritis, complete or partial small-bowel obstruction. SURGICAL FINDINGS: The patient was noted to have omental adhesions to the right lower quadrant. The patient was noted to have a loop of his terminal ileum adherent to the anterior abdominal wall. The patient had several interloop adhesions causing kinking of the terminal ileum. Upon completion of the lysis of adhesions, the cecum was expanded with endoluminal gas, whereas prior to the dissection it was not. SURGICAL TECHNIQUE: The patient was brought to the operating room and placed in the dorsal supine position, where he underwent general endotracheal anesthesia by the anesthesiology department. After proper anesthesia had taken effect, the patient 's abdomen was prepped using Betadine and draped in a sterile fashion. A supraumbilical incision was made and carried down through skin and subcutaneous tissue. Veress needle was inserted through this site, into the abdominal cavity, and after ascertaining its appropriate position with suction irrigation, pneumoperitoneum was obtained using CO2 insufflation to approximately 14-15 mmHg pressure. Once this pressure was reached, the Veress needle was removed and replaced with a 10 mm trocar. The trocar was removed, leaving the sleeve behind, through which a laparoscopic video camera was introduced into the abdominal cavity. Under direct visualization, a separate 5 mm trocar was placed in the left lower quadrant and a separate 10 mm trocar was placed in the left mid abdomen. Each entered the abdominal cavity under direct visualization. The trocars were removed, leaving the sleeves behind, through which laparoscopic instrumentation was introduced into the abdominal cavity. The omentum adherent to the right lower quadrant abdominal wall was taken down using the Thunderbeat. The terminal ileum, which was also adherent to the anterior abdominal wall, was taken down using sharp dissection. Once taken down, the terminal ileum was traced back to multiple interloop adhesions, which were taken down carefully using sharp dissection. Once the terminal ileum kinks were all straightened out, it was noted that the cecum expanded with intraluminal gas. The small bowel was run back to distended bowel; no further adhesions identified. The pneumoperitoneum was then released, and all trocars were removed from the abdominal cavity. All trocar sites approximated using 4-0 subdermal Polysorb and Steri-Strips. A sterile pressure occlusive dressing was placed over each site. The patient tolerated the procedure well, was extubated and transferred to the recovery room in stable condition. There were no intraoperative or anesthetic complications.
--- NOTE | 2016-09-13 14:41 | History & Physical Report ---
Information Source Information Source: Self Reliability: Good History Chief Complaint abdominal pain and vomiting History of Present Illness Patient is a 46 year old male with a pmh of tourettes that is presenting with a two day history of nausea, vomting, and abdomional distention. Patient is a poor historian and does not provide much history however the patient is able to claim that he initially had abdominal pain which appeared without any inciting event. Then the patient began to develop nausea and vomiting without relief. Patient had some episodes of diarrhea however they were self limiting. Patient has severe abdominal pain currently and not much else. Given patients presentation will consult surgery and admit the patient. Patient History 1. SBO (small bowel obstruction) Social History Patient currently is homeless, stays at friends places. Patient admits to smoking around half a pack a day for the past 30 years. Patient does not drink, use drugs. Family History Family history was reviewed; no changes noted. Medications and Allergies Medications Home Medications None Current Medications Sig/Omar Start time Last Medication Dose Route Stop Time Status Admin Acetaminophen 1,000 MG PREOP 09/14 0800 CAN IV Pantoprazole Sodium 40 MG DAILY@0600 09/14 0600 AC IV Famotidine/Sodium 50 ML Q12HR 09/13 2100 AC Chloride IV Metoclopramide HCl 10 MG Q6HR 09/13 1800 AC 09/13 IV 1756 Acetaminophen 650 MG Q6H PRN 09/13 1445 AC PO Sodium Chloride 1,000 ML ASDIRECTED 09/13 1445 AC IV Ketorolac 60 MG .[GIVE IN PACU] 09/13 1400 AC Tromethamine IM Lactated Ringer's 1,000 ML ASDIRECTED 09/13 1400 AC IV Meperidine HCl See Dose Q1H PRN 09/13 1400 AC Insts (1) IV Ondansetron HCl See Dose Q6H PRN 09/13 1400 AC Insts (2) IV Cefotetan Disodium/ 50 ML .[BOTTLE WASHING MACHINE OPERATOR TO OR] 09/13 1300 AC Dextrose IV Nicotine 14 MG QAM 09/13 1100 AC TOP Dose Instructions: (1)Meperidine HCl: 12.5 - 25 MG (2)Ondansetron HCl: 4 - 8 MG Allergies Coded Allergies: Codeine (09/13/16) Morphine (09/13/16) Penicillins (09/13/16) Review of Systems Constitutional Denies: Fever, Chills, Sweats, Weakness, Malaise, Other. Eyes Denies: Pain, Vision Change, Conjunctival Inflammation, Eyelid Inflammation, Redness, Other. Respiratory Denies: Cough, Dry, SOB w/exertion, Wheezing, Hemoptysis, Pleuritic Pain, Sputum , Other. Cardiovascular Denies: Chest Pain, Palpitations, Orthopnea, PND, Edema, Light-headedness, Other. Gastrointestinal Nausea, Vomiting, Abdominal Pain, Diarrhea. Denies: Constipation, Melena, Hematochezia, Other. Genitourinary Denies: Dysuria, Frequency, Incontinence, Hematuria, Retention, Other. Musculoskeletal Denies: Neck Pain, Shoulder Pain, Arm Pain, Back Pain, Hand Pain, Leg Pain, Foot Pain, Other. Skin Denies: Rash, Lesions, Jaundice, Bruising, Other. Neurological Denies: Weakness, Numbness, Incoordination, Change in speech, Confusion, Seizures, Other. Physical Exam Vital Signs / I&Os Vital Signs Date Time Temp Pulse Resp B/P Pulse O2 O2 Flow FiO2 Ox Delivery Rate 09/13 1655 82 16 105/68 100 Nasal 3.0 Cannula 09/13 1637 79 18 107/73 100 Nasal 3.0 Cannula / 1620 82 18 111/68 100 Nasal 3.0 Cannula / 1615 72 13 95 3.0 / 1605 98.1 85 18 121/82 96 Room Air 09/13 1545 99.3 94 18 108/75 98 Nasal 2.0 Cannula / 1530 88 20 118/76 100 Nasal 2.0 Cannula / 1515 88 18 122/85 98 Nasal 2.0 Cannula / 1510 72 20 123/80 96 Nasal 2.0 Cannula /19 1505 71 20 112/79 95 Nasal 2.0 Cannula /19 1500 72 16 149/84 98 Nasal 2.0 Cannula /19 1455 98.4 73 16 131/83 98 Nasal 2.0 Cannula /19 1450 72 18 115/78 100 Nasal 2.0 Cannula / 1445 66 18 123/78 99 Nasal 2.0 Cannula /19 1440 65 18 131/81 98 Nasal 2.0 Cannula 03/19 1435 64 20 126/80 98 Nasal 2.0 Cannula 03/19 1430 73 20 114/75 97 Nasal 2.0 Cannula 03/19 1425 72 21 120/75 98 Nasal 2.0 Cannula 09/13 1420 72 23 116/72 98 Nasal 2.0 Cannula 09/13 1415 72 22 116/72 98 Nasal 2.0 Cannula 09/13 1410 68 20 105/58 95 09/13 1406 98.1 65 28 105/63 100 09/13 0918 98.2 86 16 118/86 96 Room Air 09/13 0915 Room Air General Appearance Alert, Oriented X3, Moderate distress HEENT Atraumatic, Moist mucous membranes Lungs Clear to auscultation, Normal air movement Neck No JVD, No masses, No thyromegaly Cardiovascular Regular rate and rhythm, No murmurs, gallops, rubs Abdomen Soft, No tenderness, No guarding Extremities No edema, Normal pulses, No tenderness, Strength = upper ext's, Strength = lower ext's, Loc's sign negative Skin No Rashes, No Breakdown Neurological Normal tone, Sensation intact, Cranial nerves intact, Strength 5/5 x4 ext's, No lateralizing signs Psych/Mental Status Mood normal LAB Results Laboratory Tests 09/13 09/13 09/13 0430 0430 0850 Chemistry Plasma Sodium (136 - 145 mmol/L) 137 Plasma Potassium (3.5 - 5.1 mmol/L) 3.5 Plasma Chloride (98 - 107 mmol/L) 101 CO2 (Enzymatic) (21 - 32 mmol/L) 32 BUN (7 - 18 mg/dL) 27 Creatinine (0.6 - 1.3 mg/dL) 1.1 Est GFR ( Amer) (mL/min) >60 Est GFR (Non-Af Amer) (mL/min) >60 Glucose (70 - 110 mg/dL) 97 Lactic Acid (0.4 - 2.0 mmol/L) 1.2 Plasma Calcium (8.5 - 10.1 mg/dL) 8.8 Total Bilirubin (0.0 - 1.0 mg/dL) 0.2 AST (15 - 37 U/L) 27 ALT (12 - 78 U/L) 28 Alkaline Phosphatase (46 - 116 U/L) 82 Total Protein (6.4 - 8.2 g/dL) 8.0 Albumin (3.3 - 5.0 g/dL) 3.7 Lipase (73 - 393 U/L) 147 Hematology WBC (4.5 - 11.5 K/uL) 7.1 RBC (4.50 - 5.90 M/uL) 4.81 Hgb (13.5 - 17.5 gm/dL) 14.4 Hct (41.0 - 53.0 %) 44.2 MCV (80 - 100 fL) 92 MCH (26 - 34 pg) 30 RDW (11.6 - 14.8 %) 13.4 Neut % (Auto) (50 - 75 %) 73.6 Lymph % (Auto) (25 - 40 %) 14.8 [place] % (Auto) (3 - 14 %) 8.6 Eos % (Auto) (0 - 4 %) 2.2 Baso % (Auto) (0 - 2 %) 0.8 Plt Count, EDTA (150 - 400 K/uL) 310 PUBS MCHC (31 - 37 g/dL) 33 Microbiology Date/Time Procedure - Status Source Growth 09/13 1000 MRSA Screen - RECD NASAL Assessment and Plan Problem List 1. SBO (small bowel obstruction) Plan - will plan to send the patient to the OR - will await results from the exploratory laprascopy - will most likely keep pt npo after surgery - will trend blood work 2. Tourette's Plan - no management at the current time
--- NOTE | 2016-09-13 14:50 | NUR ---
PT REMAINS SEDATED, RESPONDING TO PERSISTANT VOICE STIMULI ONLY. NOT ANSWERING QUESTIONS. APPEARS COMFORTABLE. VSS.
--- NOTE | 2016-09-13 15:08 | NUR ---
PT DENIES PAIN OR NAUSEA. STILL ONLY AROUSABLE TO PERSISTENT STIMULI. VSS.
--- NOTE | 2016-09-13 15:43 | NUR ---
PT AWAKE AND CONVERSING. DENIES PAIN OR NAUSEA. VSS. STILL SLEEPY WHEN NOT STIMULATED, BUT NOW AROUSING EASILY TO VOICE.
--- NOTE | 2016-09-13 16:00 | NUR ---
RECEIVED PT IN BED, FROM PACU. ALERT, ORIENTED, COHERENT, COOPERATIVE. V/S TAKEN AND RECORDED. STARTED ON tCO2 MONITOR. O2 SAT ON RA IS 94-95%. ASSESSEMNT DONE. NO NG TUBE. DENIES PAIN, N/V TAKEN AND RECORDED. " I AM HUNGRY" PT STATES. NPO INSTRUC. INFORMED HIM REGARDING HIS PRECODURE. PT UNDERSTOOD. AT 1620 O2 SAT ON RA IS 88%. O2 3L INFUSED BY MR PATTEN (RT). INSTRUC PT TO COUGH AND DEEP BREATH. AND AMBULATE. PT UNDERSTOOD. WITH 3 TROCHAR SITES, CLEAN, DRY AND INTACT.
--- NOTE | 2016-09-13 17:36 | NUR ---
PT IS ASLEEP BUT EASILY AROUSED.
--- NOTE | 2016-09-13 18:00 | NUR ---
PT IS STILL LETHARGIC BUT AROUSABLE THEN GOES BACK TO SLEEP AGAIN. PT IS UNABLE TO AMBULATE.
--- NOTE | 2016-09-13 23:05 | ED DISCHARGE INSTRUCTIONS ---
Patient: MERA RODRIGUEZ General Instructions [facility] VisitID: [id number] [address] [place] [address] 46y, M Registration Date/Time: 09/13/2016 Complete small bowel obstruction associated with intestinal bands / adhesions. Dehydration with pre-renal azotemia. (Electronically signed by Bernardo Abdul MD 09/13/2016 23:05)
--- NOTE | 2016-09-13 23:05 | ED DISCHARGE INSTRUCTIONS ---
Patient: MERA RODRIGUEZ General Instructions [facility] VisitID: [id number] [address] [place] [address] 46y, M Registration Date/Time: 09/13/2016 Complete small bowel obstruction associated with intestinal bands / adhesions. Dehydration with pre-renal azotemia. (Electronically signed by Bernardo Abdul MD 09/13/2016 23:05)
--- NOTE | 2016-09-13 23:05 | ED MED RECONCILIATION SUMMARY ---
Patient: MERA RODRIGUEZ Medication Reconciliation Report [facility] VisitID: [id number] [address] [place] [address] 46y, M Registration Date/Time: 09/13/2016 Weight: 58.9 kg Height/Length: 68 in. BMI: 19.7 ALLERGIES: Bee stings, Coconut, Codeine, morphine, Penicillin The patient's Home Medications are listed below: THE FOLLOWING MEDICATIONS NEED TO BE RECONCILED: ProAir HFA Inhalation The source(s) of the original Home Medication information: Not obtained. The following Medications were given to the patient in the Emergency Department: IV NS IV Fluids bolus 0, then 1000 mL/hr, administered: 09/13/2016 4:47:00 AM Zofran [IVP] IVP 4 mg, administered: 09/13/2016 5:23:00 AM PHENERGAN [IVP] IVP 12.5 mg, administered: 09/13/2016 6:01:00 AM The following Medications were prescribed to the patient: None.
--- NOTE | 2016-09-13 23:05 | ED MED RECONCILIATION SUMMARY ---
Patient: MERA RODRIGUEZ Medication Reconciliation Report [facility] VisitID: [id number] [address] [place] [address] 46y, M Registration Date/Time: 09/13/2016 Weight: 58.9 kg Height/Length: 68 in. BMI: 19.7 ALLERGIES: Bee stings, Coconut, Codeine, morphine, Penicillin The patient's Home Medications are listed below: THE FOLLOWING MEDICATIONS NEED TO BE RECONCILED: ProAir HFA Inhalation The source(s) of the original Home Medication information: Not obtained. The following Medications were given to the patient in the Emergency Department: IV NS IV Fluids bolus 0, then 1000 mL/hr, administered: 09/13/2016 4:47:00 AM Zofran [IVP] IVP 4 mg, administered: 09/13/2016 5:23:00 AM PHENERGAN [IVP] IVP 12.5 mg, administered: 09/13/2016 6:01:00 AM The following Medications were prescribed to the patient: None.
--- NOTE | 2016-09-13 23:05 | ED MAR SUMMARY ---
..... Medication Administration Record [facility] [address] [place] [address] Patient: MERA RODRIGUEZ Visit ID: [id number] 46y, M Weight: 58.9 kg Height/Length: 68 in BMI: 19.7 ALLERGIES: Bee stings, Coconut, Codeine, morphine, Penicillin Start 04:47 09/13/2016 Mustapha Inman R.N., Stop 05:48 09/13/2016 Alison Godfrey R.N. Medication Administered: IV NS (SALINE), Dose: IV Fluids over 1 hour(s), Rate: 1000 mL/hr, Dispensed: 1000 mL bag, Site: #1 left AC. Medication Ordered: IV NS : initial bolus none -, then 1000 mL/hr (NOW). Given 05:23 09/13/2016 Mustapha Inman R.N. Medication Administered: ZOFRAN [IVP] (ONDANSETRON HCL), Dose: 4 mg IVP over 1 minute(s), Site: #1 left AC. Medication Ordered: Zofran IV 4 mg (NOW). Given 06:01 09/13/2016 Mustapha Inman R.N. Medication Administered: PHENERGAN [IVP] (PROMETHAZINE HCL), Dose: 12.5 mg IVP over 2 minute(s), Site: #1 left AC. Medication Ordered: Phenergan IV 12.5 mg (NOW).
--- NOTE | 2016-09-13 23:05 | ED MAR SUMMARY ---
..... Medication Administration Record [facility] [address] [place] [address] Patient: MERA RODRIGUEZ Visit ID: [id number] 46y, M Weight: 58.9 kg Height/Length: 68 in BMI: 19.7 ALLERGIES: Bee stings, Coconut, Codeine, morphine, Penicillin Start 04:47 09/13/2016 Mustapha Inman R.N., Stop 05:48 09/13/2016 Alison Godfrey R.N. Medication Administered: IV NS (SALINE), Dose: IV Fluids over 1 hour(s), Rate: 1000 mL/hr, Dispensed: 1000 mL bag, Site: #1 left AC. Medication Ordered: IV NS : initial bolus none -, then 1000 mL/hr (NOW). Given 05:23 09/13/2016 Mustapha Inman R.N. Medication Administered: ZOFRAN [IVP] (ONDANSETRON HCL), Dose: 4 mg IVP over 1 minute(s), Site: #1 left AC. Medication Ordered: Zofran IV 4 mg (NOW). Given 06:01 09/13/2016 Mustapha Inman R.N. Medication Administered: PHENERGAN [IVP] (PROMETHAZINE HCL), Dose: 12.5 mg IVP over 2 minute(s), Site: #1 left AC. Medication Ordered: Phenergan IV 12.5 mg (NOW).
[2016-09-14] VITALS (9 sets, daily range): BP systolic 93–122; BP diastolic 46–91
--- NOTE | 2016-09-14 06:25 | DIAGNOSTIC IMAGING REPORT ---
PROCEDURE: XR ABDOMEN 1 VIEW UPRIGHT INDICATION: Post bowel obstruction. TECHNIQUE: AP upright view. COMPARISON: Compared to abdominal radiograph on 09/13/2016. FINDINGS: There has been mild to moderate improvement with resolving of bowel distention, with persistent air fluid levels. There is a small to moderate amount of postoperative free air. NG tube has been removed in the interim. IMPRESSION: 1. Postoperative changes with small to moderate free air. 2. Mild to moderate improvement with resolving of bowel distention. 3. Removal of NG tube.
--- NOTE | 2016-09-14 07:48 | NUR ---
PATIENT SITTING UP IN CHAIR FOR BREAKFAST. STATES HE HAS BEEN PASSING GAS. DENIES PAIN AT THIS TIME. 3 TROCAR SITES INTACT WITH SITE AT MID ABDOMEN WITH OLD DRIED BLOOD. SEE SHIFT ASSESSMENT FOR FURTHER DETAILS. REFUSES NICOTINE PATCH AT THIS TIME BUT WOULD LIKE TO 'KEEP IT AN OPTION.'
--- NOTE | 2016-09-14 09:10 | NUR ---
MAGNESIUM 1.7 THIS AM. AWARE AND NO NEW ORDERS TO REPLACE THIS AM. WILL CONTINUE TO MONITOR.
--- NOTE | 2016-09-14 14:41 | NUR ---
In to see patient who states that he fell prior to admit and as a result has abrasions to top of right hand. Abrasions with scabs to back of right hand, please see photographic wound assessment sheet for photo and characteristics, wounds cleansed with NS, triple antibiotic ointment applied, covered with band aid, pt tentative discharge tomorrow, educated to keep clean,apply antibiotic ointment daily and keep covered until healed. Pt expresses understanding.
--- NOTE | 2016-09-14 14:46 | NUR ---
TOLERATING CLEAR LIQUIDS WELL. VERY HUNGRY TODAY AND DRINKING A LOT OF FLUIDS. ADVANCED DIET TO FULL LIQUID AND PATIENT TOLERATED THAT WELL. PUT IN AN ORDER FOR GENERAL DIET FOR DINNER. PATIENT AMBULATING EVERY HOUR AND PASSING FLATUS. DENIES PAIN.
--- NOTE | 2016-09-14 16:45 | Progress Note ---
Subjective General Patient seen and examined. Patient is stable and doing well. Patient has return of bowel function. Constitutional Denies: Fever, Chills, Sweats, Weakness, Malaise, Other. Eyes Denies: Pain, Vision Change, Conjunctival Inflammation, Eyelid Inflammation, Redness, Other. Respiratory Denies: Cough, Dry, SOB w/exertion, Wheezing, Hemoptysis, Pleuritic Pain, Sputum , Other. Cardiovascular Denies: Chest Pain, Palpitations, Orthopnea, PND, Edema, Light-headedness, Other. Gastrointestinal Denies: Nausea, Vomiting, Abdominal Pain, Diarrhea, Constipation, Melena, Hematochezia, Other. Genitourinary Denies: Dysuria, Frequency, Incontinence, Hematuria, Retention, Other. Musculoskeletal Denies: Neck Pain, Shoulder Pain, Arm Pain, Back Pain, Hand Pain, Leg Pain, Foot Pain, Other. Skin Denies: Rash, Lesions, Jaundice, Bruising, Other. Neurological Denies: Weakness, Numbness, Incoordination, Change in speech, Confusion, Seizures, Other. Physical Exam Vital Signs / I&Os Vital Signs Date Time Temp Pulse Resp B/P Pulse O2 O2 Flow FiO2 Ox Delivery Rate 09/14 1421 98.6 73 18 118/82 97 Room Air 09/14 1129 98.2 69 18 105/63 98 Room Air 09/14 1014 2.0 09/14 0828 97 09/14 0721 97 Room Air 0.0 09/14 0716 98.1 86 18 101/63 99 Nasal 2.0 Cannula 09/14 0615 84 16 103/65 99 Nasal 2.0 Cannula 09/14 0518 70 12 99 2.0 09/14 0445 73 99/57 09/14 0434 98.4 70 16 93/46 96 Nasal 2.0 Cannula 09/14 0303 74 14 99 2.0 09/14 0104 58 10 118/58 100 2.0 09/13 2350 98.2 60 18 118/58 98 Nasal 2.0 Cannula 09/13 2159 78 18 103/71 100 2.0 09/13 2110 Nasal 2.0 Cannula 09/13 2008 60 12 103/71 100 2.0 09/13 1957 98.2 67 14 103/71 100 Nasal 2.0 Cannula 09/13 1905 71 14 103/71 100 Nasal 2.0 Cannula 09/13 1804 75 16 106/71 100 Nasal 3.0 Cannula 09/13 1720 66 10 102/79 100 Nasal 3.0 Cannula 09/13 1655 82 16 105/68 100 Nasal 3.0 Cannula I&O 09/13 0800 09/13 1600 09/14 0000 Intake Total 1225 245 Output Total 350 Balance 875 245 General Appearance Alert, Oriented X3, No acute distress, - cachectic looking HEENT Atraumatic, PERRLA, Moist mucous membranes Lungs Clear to auscultation, Normal air movement Cardiovascular Regular rate and rhythm, Normal S1 and S2, No murmurs, gallops, rubs Abdomen Normal bowel sounds, Soft Extremities No clubbing, Normal pulses Skin No Breakdown Neurological Normal speech, Normal tone, Sensation intact, Cranial nerves intact , No lateralizing signs LAB Results Laboratory Tests 09/14 0550 Chemistry Plasma Sodium (136 - 145 mmol/L) 145 Plasma Potassium (3.5 - 5.1 mmol/L) 3.2 Plasma Chloride (98 - 107 mmol/L) 108 CO2 (Enzymatic) (21 - 32 mmol/L) 26 BUN (7 - 18 mg/dL) 25 Creatinine (0.6 - 1.3 mg/dL) 1.2 Est GFR ( Amer) (mL/min) >60 Est GFR (Non-Af Amer) (mL/min) >60 Glucose (70 - 110 mg/dL) 71 Plasma Calcium (8.5 - 10.1 mg/dL) 7.7 Plasma Magnesium (1.8 - 2.4 mg/dL) 1.7 Total Bilirubin (0.0 - 1.0 mg/dL) 0.4 AST (15 - 37 U/L) 25 ALT (12 - 78 U/L) 18 Alkaline Phosphatase (46 - 116 U/L) 63 Total Protein (6.4 - 8.2 g/dL) 5.5 Albumin (3.3 - 5.0 g/dL) 2.6 Hematology WBC (4.5 - 11.5 K/uL) 5.2 RBC (4.50 - 5.90 M/uL) 3.97 Hgb (13.5 - 17.5 gm/dL) 12.1 Hct (41.0 - 53.0 %) 36.4 MCV (80 - 100 fL) 92 MCH (26 - 34 pg) 30 RDW (11.6 - 14.8 %) 13.4 Neut % (Auto) (50 - 75 %) 63.9 Lymph % (Auto) (25 - 40 %) 22.8 [place] % (Auto) (3 - 14 %) 9.7 Eos % (Auto) (0 - 4 %) 2.9 Baso % (Auto) (0 - 2 %) 0.7 Plt Count, EDTA (150 - 400 K/uL) 212 PUBS MCHC (31 - 37 g/dL) 33 Assessment and Plan Problem List 1. SBO (small bowel obstruction) Plan - s/p lysis of adhesions - bowel function has returned - will await to tolerate regular diet - pain control as needed 2. Homelessness Plan - looking for resources given his lack of living arrangments
--- NOTE | 2016-09-14 19:57 | NUR ---
PATIENT IS ALERT AND ORIENTED. LUNG SOUNDS CLEAR. BEEN UP ADN AMBULATING AROUND HALLWAY THROUGHOUT THE DAY. HAS SCDS ON THOUGHOUT THE DAY TO PREVNET DVT. PASSED OFF IN REPORT THAT DR WAS AWARE OF CURRENT LABS. UP IN CHAIR WHILE EATING. BOWEL TONES PRESENT ALL QUARDANTS. DRESSINGS C/D/I ON ABDOMEN AND ON WRIST.
[2016-09-15 03:39] VITALS: BP 116/75
--- NOTE | 2016-09-15 06:31 | NUR ---
VSS. A&OX4. SLEEPING THROUGH SHIFT. DROWSY WHEN AWAKENED. DENIES PAIN. WCTM.
--- NOTE | 2016-09-15 06:59 | Progress Note ---
Subjective General Note Date: September 15, 2016 Admission Date: September 13, 2016 Hospital Day: 3 PCP: None Status: Inpatient Advanced Directive: FULL CODE Room: 204-B Brief History: The patient is a 46-year-old white male with a history of Tourette syndrome but no other significant past medical history who presented to [facility] emergency department on the day of admission secondary to complaints of abdominal pain nausea and vomiting. [facility] ER findings were consistent with small bowel obstruction. Secondary to the above, the patient was admitted by Tyler Vogel M.D. with surgical consultation by Dmitry Sivla. For other history present illness, past medical history, family history, social history, review of systems, and admission physical examination please see the patient's history and physical examination and ER visit note in the patient's medical record. Subjective: The patient states he is doing well. Ready for discharge. Eating well without problems. No significant abdominal pain. Patient requests: None Medications and Allergies Medications Current Medications Sig/Omar Start time Last Medication Dose Route Stop Time Status Admin Sodium Chloride 1,000 ML ASDIRECTED 09/14 1845 AC IV Pantoprazole Sodium 40 MG DAILY@0600 09/14 0600 AC 09/15 IV 0541 Metoclopramide HCl 10 MG Q6HR 09/13 1800 AC 09/15 IV 0541 Acetaminophen 650 MG Q6H PRN 09/13 1445 AC 09/14 PO 1840 Sodium Chloride 1,000 ML ASDIRECTED 09/13 1445 AC 09/15 IV 0544 Meperidine HCl See Dose Q1H PRN 09/13 1400 AC 09/14 Insts (1) IV 0322 Ondansetron HCl See Dose Q6H PRN 09/13 1400 AC Insts (2) IV Nicotine 14 MG QAM 09/13 1100 AC TOP Dose Instructions: (1)Meperidine HCl: 12.5 - 25 MG (2)Ondansetron HCl: 4 - 8 MG Allergies Coded Allergies: Codeine (09/13/16) Morphine (09/13/16) Penicillins (09/13/16) Physical Exam Vital Signs / I&Os Vital Signs Date Time Temp Pulse Resp B/P Pulse O2 O2 Flow FiO2 Ox Delivery Rate 09/15 0339 97.9 73 16 116/75 94 Room Air 09/14 2244 72 16 116/70 94 09/14 1825 97.9 55 18 122/91 98 Room Air 09/14 1421 98.6 73 18 118/82 97 Room Air 09/14 1129 98.2 69 18 105/63 98 Room Air 09/14 1014 2.0 09/14 0828 97 09/14 0721 97 Room Air 0.0 09/14 0716 98.1 86 18 101/63 99 Nasal 2.0 Cannula I&O 09/15 0000 09/14 1600 09/14 0800 Intake Total 480 3235 1549 Output Total 775 925 250 Balance -295 2310 1299 General Appearance Alert, Oriented X3, Cooperative, No acute distress Lungs Clear to auscultation, Normal air movement Cardiovascular Regular rate and rhythm, Normal S1 and S2 Abdomen Normal bowel sounds, Soft, minimal tenderness Extremities No cyanosis, No clubbing, No edema Neurological Cranial nerves intact, Strength 5/5 x4 ext's, No lateralizing signs Psych/Mental Status Mental status normal, Mood normal LAB Results Laboratory Tests 09/15 0530 Chemistry Plasma Sodium (136 - 145 mmol/L) 144 Plasma Potassium (3.5 - 5.1 mmol/L) 4.0 Plasma Chloride (98 - 107 mmol/L) 109 CO2 (Enzymatic) (21 - 32 mmol/L) 30 BUN (7 - 18 mg/dL) 12 Creatinine (0.6 - 1.3 mg/dL) 1.1 Est GFR ( Amer) (mL/min) >60 Est GFR (Non-Af Amer) (mL/min) >60 Glucose (70 - 110 mg/dL) 93 Plasma Calcium (8.5 - 10.1 mg/dL) 7.9 Total Bilirubin (0.0 - 1.0 mg/dL) 0.1 AST (15 - 37 U/L) 20 ALT (12 - 78 U/L) 18 Alkaline Phosphatase (46 - 116 U/L) 59 Total Protein (6.4 - 8.2 g/dL) 5.1 Albumin (3.3 - 5.0 g/dL) 2.4 Hematology WBC (4.5 - 11.5 K/uL) 5.6 RBC (4.50 - 5.90 M/uL) 3.83 Hgb (13.5 - 17.5 gm/dL) 11.7 Hct (41.0 - 53.0 %) 35.2 MCV (80 - 100 fL) 92 MCH (26 - 34 pg) 31 RDW (11.6 - 14.8 %) 13.4 Neut % (Auto) (50 - 75 %) 54.6 Lymph % (Auto) (25 - 40 %) 29.0 [place] % (Auto) (3 - 14 %) 10.3 Eos % (Auto) (0 - 4 %) 5.6 Baso % (Auto) (0 - 2 %) 0.5 Plt Count, EDTA (150 - 400 K/uL) 216 PUBS MCHC (31 - 37 g/dL) 33 Assessment and Plan Problem List 1. SBO (small bowel obstruction) Plan -Patient presented with findings of small bowel obstruction -Status post lysis of adhesions yesterday -Discharge per surgical consult-Dr. Silva 2. Tobacco abuse disorder Plan -Patient with tobacco use disorder -Smoking cessation education -NicoDerm patch on discharge -Encourage smoking abstinence post discharge Current status: Fair, improved Anticipated discharge date: Today Anticipated discharge placement: Home Patient care time: Time spent in chart review, patient interview, physical exam, CPOE, and care documentation: Greater than 30 minutes Visit to patient today: 1 Complexity of care: Moderate For other recommendations regarding discharge diet, activity, followup, and discharge medications please see the patient's discharge instructions. Greater than 30 min. was spent in the patient's discharge preparation including discharge interview and physical examination, progress note, discharge instructions, and discharge summary E&M Codes Discharge: Inpt >30 min spent/[id number]
[2016-09-15 07:52] VITALS: BP 112/83
--- NOTE | 2016-09-15 08:12 | NUR ---
PATIENT UP TO CHAIR FOR BREAKFAST. DENIES PAIN. STATES HE HAD BM LAST EVENING. TROCAR SITES INTACT WITH MIDDLE SITE WITH OLD DRIED BLOOD. AMBULATING INDEPENDENTLY IN ROOM. TOLERATING GENERAL DIET W/O PROBLEMS.
[2016-09-15] MEDS ORDERED: NICOTINE T14 MG/24 H TOP (10:23)
[2016-09-15] MEDS ORDERED: MAPAP325 MG PO (10:23)
[2016-09-15 10:38] VITALS: BP 140/72
--- NOTE | 2016-09-15 11:22 | Provider's Discharge Care Plan ---
Problem, Goal, Plan Problem List 1. SBO (small bowel obstruction) Goals: Improve disease control, Prevent disease progress Instructions: Follow up as directed, Take meds as directed 2. Tobacco abuse disorder Goals: Improve disease control, Prevent disease progress Instructions: Follow up as directed, Take meds as directed, Stop smoking
--- NOTE | 2016-09-15 11:27 | Discharge Summary ---
Discharge Summary Report Admit Date 09/13/16 Discharge Date 09/15/16 Admission Diagnosis 1. Small bowel obstruction 2. Tobacco abuse disorder Discharge Diagnosis 1. Small bowel obstruction 2. Tobacco abuse disorder Brief History The patient is a 46-year-old white male with a significant past medical history of nicotine dependence-smoking who presented to [facility] emergency department on the day of admission secondary to abdominal pain. Findings were consistent with small bowel obstruction. Secondary to the above, the patient was admitted by Hunter Vogel M.D. for further evaluation and treatment. For other history of present illness, past medical history, family history, social history, review systems, and admission physical examination please see the admission history and physical exam and ER visit note in the patient's medical record. Hospital Course The following problems and their management were noted during the patient's hospitalization: 1. Small bowel obstruction The patient presented with findings of small bowel obstruction. He underwent lysis of adhesions by Dr. Silva. Symptoms resolved completely by discharge. The patient was taking a regular diet without problems. Discharge today with outpatient follow-up with Dr. Silva next week. 2. Tobacco abuse disorder The patient has a history of tobacco use disorder. He underwent smoking cessation education. NicoDerm patch when necessary. Outpatient follow-up with PCP. The patient was encouraged to follow a smoking cessation program postdischarge General Appearance Alert, Oriented X3, Cooperative, No acute distress Lungs Clear to auscultation, Normal air movement Cardiovascular Regular Rate, Normal S1, Normal S2 Abdomen Normal bowel sounds, Soft, mild diffuse tenderness Neurological Strength at 5/5 X4 ext, Cranial nerves 3-12 NL Psych/Mental Status Mental status NL, Mood NL Lab/Imaging Laboratory Tests 09/15 0530 Chemistry Plasma Sodium (136 - 145 mmol/L) 144 Plasma Potassium (3.5 - 5.1 mmol/L) 4.0 Plasma Chloride (98 - 107 mmol/L) 109 CO2 (Enzymatic) (21 - 32 mmol/L) 30 BUN (7 - 18 mg/dL) 12 Creatinine (0.6 - 1.3 mg/dL) 1.1 Est GFR ( Amer) (mL/min) >60 Est GFR (Non-Af Amer) (mL/min) >60 Glucose (70 - 110 mg/dL) 93 Plasma Calcium (8.5 - 10.1 mg/dL) 7.9 Total Bilirubin (0.0 - 1.0 mg/dL) 0.1 AST (15 - 37 U/L) 20 ALT (12 - 78 U/L) 18 Alkaline Phosphatase (46 - 116 U/L) 59 Total Protein (6.4 - 8.2 g/dL) 5.1 Albumin (3.3 - 5.0 g/dL) 2.4 Hematology WBC (4.5 - 11.5 K/uL) 5.6 RBC (4.50 - 5.90 M/uL) 3.83 Hgb (13.5 - 17.5 gm/dL) 11.7 Hct (41.0 - 53.0 %) 35.2 MCV (80 - 100 fL) 92 MCH (26 - 34 pg) 31 RDW (11.6 - 14.8 %) 13.4 Neut % (Auto) (50 - 75 %) 54.6 Lymph % (Auto) (25 - 40 %) 29.0 [place] % (Auto) (3 - 14 %) 10.3 Eos % (Auto) (0 - 4 %) 5.6 Baso % (Auto) (0 - 2 %) 0.5 Plt Count, EDTA (150 - 400 K/uL) 216 PUBS MCHC (31 - 37 g/dL) 33 Discharge Instructions/Meds For other recommendations regarding discharge diet, activity, followup, and discharge medications please see the patient's discharge instructions. Discharge condition: Good, improved Greater than 30 min. was spent in the patient's discharge preparation including discharge interview and physical examination, progress note, discharge instructions, and discharge summary The patient was interviewed and examined on the day of discharge. E&M Codes Discharge: Inpt >30 min spent/[id number]
--- NOTE | 2016-09-15 12:53 | NUR ---
DC'D IV TO [facility], HEMOSTASS ACHIEVED WITH MANUAL PRESSURE, SECURED WITH GAUZE AND TAPE. DC INSTRUCTIONS GIVEN TO PATIENT. ALL QUESTIONS ANSWERED. FOLLOW UP APPT MADE FOR 1 WEEK. PATIENT STATES HE NEEDS TO TAKE A BUS TO [place], POSSIBLY STAYING WITH A FRIEND. TO BE ESCORTED OUT OF FACILITY BY STAFF AND WILL TAKE BUS TO [place].
== END 2016-09-15 13:15 | disposition home or self-care (01) | DRG 337 ==
LOC: ED SRH 04:21 → TRANS SRH 07:15 → ACUTE2 SRH 07:35
PROVIDERS: Specialist; ADMIT Emergency Medicine
PROC: 0D9670Z Drainage of Stomach with Drainage Device, Via Natural or Artificial Opening (ICD-10-PCS; 2016-09-13)
PROC: 0DNB4ZZ Release Ileum, Percutaneous Endoscopic Approach (ICD-10-PCS; principal; 2016-09-13 12:15)
DX: K56.5 Intestinal adhesions [bands] with obstruction (postinfection) (principal); E86.0 Dehydration; R39.2 Extrarenal uremia; F17.210 Nicotine dependence, cigarettes, uncomplicated; J44.9 Chronic obstructive pulmonary disease, unspecified; F95.2 Tourette's disorder; Z59.0 Homelessness; Z71.6 Tobacco abuse counseling
CPT/HCPCS: 50002; 60001; 70002; 80102; 80248; 80298; 81642; 82794; 82897; 83432; 83526; 83587; 83919; 83982; 84038; 90074; 90100; 91672; 92031; 92132; 92235; 92530; 92720; 95059

== ENCOUNTER → 2016-09-13 | Emergency (ER) | payer OTHER ==
[~2016-09-13] MED LIST: MAPAP325 MG PO; NICOTINE T14 MG/24 H TOP; PROAIR HFA IN
== END ==
LOC: ED SRH 04:32
DX: Z53.9 Procedure and treatment not carried out, unspecified reason (principal)